=== PATIENT | female | born 2000 | race Caucasian/White ===

== ENCOUNTER 2024-03-23 17:44 | Emergency (ER) | payer OTHER ==
[~2024-03-23] VITALS: Ht 177.8 cm; Wt 79.4 kg
[~2024-03-23 17:44] MED LIST: AMOX50SU PO
[2024-03-23] MEDS ORDERED: Diphth,Pertuss(Acell),Tet Vac 0.5 ML VIAL IM ONE (19:00)
== END 2024-03-23 19:53 | disposition home or self-care (01) ==
LOC: ER 17:44
DX: S61.512A Laceration without foreign body of left wrist, initial encounter (principal); W26.0XXA Contact with knife, initial encounter
CPT/HCPCS: 12002; 90471; 90715; 99282-25